=== PATIENT | male | born 1965 | race Caucasian/White ===

== ENCOUNTER 2020-11-08 10:44 | Day surgery (SDC) | payer BC, SELFPAY ==
[2020-11-04 14:28] VITALS: BMI 33.6
--- NOTE | 2020-11-07 09:38 | P.CONAN_ITS ---
Documented by User: Lorena Burrows 11/07/20 09:39 HPI - Anesthesia Eval Consult details Narrative: 55yo M for Upper Endoscopy and Colonoscopy [facility] Past Medical History Medical History (Updated 11/04/20 @ 14:18 by Jodie Mendoza) Anxiety Barretts esophagus Chronic rhinitis Elevated cholesterol GERD (gastroesophageal reflux disease) Pain and numbness of upper extremity Post-nasal drip Surgical History Surgical History (Updated 11/04/20 @ 14:18 by Jodie Mendoza) History of carpal tunnel release of both wrists History of esophagogastroduodenoscopy (EGD) Hx of colonoscopy Social History Social History (Updated 11/08/20 @ 12:11 by Rosaline Nagy) Alcohol intake: current Alcohol intake frequency: holidays/special occasions only Smoking Status: Current every day smoker Packs Per Day: 1 Cigarettes Per Day: 20 Years Smoked: 35 Smoked in Last 30 Days: Yes Use of substances other than those prescribed or required for medical reasons: Yes Substance Use Type: Marijuana Substance Use Frequency: Occasionally Last Used Substance: Days (ago) Advance Directives: No Advance Directives Information Provided: No Advance Directives on File: No Meds Allergies Allergy/AdvReac Type Severity Reaction Status Date / Time erythromycin base Allergy Intermediate RASH Unverified 06/13/20 15:51 [ERYTHROMYCIN BASE] Home Medications Medication Instructions Recorded Confirmed Last Taken Type acetaminophen 1,500 mg PO DAILY PRN 11/04/20 11/04/20 Unknown History amitriptyline 25 mg PO BEDTIME 11/04/20 11/04/20 Unknown History gabapentin 900 mg PO DAILY 11/04/20 11/08/20 11/08/20 06:30 History 900 mg omeprazole 1 cap PO BID 11/04/20 11/08/20 11/08/20 06:30 History Exam Exam Date and Time: November 07, 2020 0938 Height,Weight and Vital Signs: Height 5 ft 7 in Weight 97.522 kg Assessment and Plan Assessment Anesthesia Assessment: Chart Reviewed Documented by User: Rosaline Nagy 11/08/20 12:13 [facility] Past Medical History Medical History (Updated 11/04/20 @ 14:18 by Jodie Mendoza) Anxiety Barretts esophagus Chronic rhinitis Elevated cholesterol GERD (gastroesophageal reflux disease) Pain and numbness of upper extremity Post-nasal drip Family History Family history of problems with anesthesia: No Surgical History Surgical History (Updated 11/04/20 @ 14:18 by Jodie Mendoza) History of carpal tunnel release of both wrists History of esophagogastroduodenoscopy (EGD) Hx of colonoscopy History of Problems with Anesthesia: No Social History Social History (Updated 11/08/20 @ 12:11 by Rosaline Nagy) Alcohol intake: current Alcohol intake frequency: holidays/special occasions only Smoking Status: Current every day smoker Packs Per Day: 1 Cigarettes Per Day: 20 Years Smoked: 35 Smoked in Last 30 Days: Yes Use of substances other than those prescribed or required for medical reasons: Yes Substance Use Type: Marijuana Substance Use Frequency: Occasionally Last Used Substance: Days (ago) Advance Directives: No Advance Directives Information Provided: No Advance Directives on File: No Meds Allergies Allergy/AdvReac Type Severity Reaction Status Date / Time erythromycin base Allergy Intermediate RASH Unverified 06/13/20 15:51 [ERYTHROMYCIN BASE] Home Medications Medication Instructions Recorded Confirmed Last Taken Type acetaminophen 1,500 mg PO DAILY PRN 11/04/20 11/04/20 Unknown History amitriptyline 25 mg PO BEDTIME 11/04/20 11/04/20 Unknown History gabapentin 900 mg PO DAILY 11/04/20 11/08/20 11/08/20 06:30 History 900 mg omeprazole 1 cap PO BID 11/04/20 11/08/20 11/08/20 06:30 History Exam Height,Weight and Vital Signs: Vital Signs Temp Pulse Resp BP 11/08/20 11:28 97.4 F 67 20 138/64 Airway Mallampati Class: II TM Dist: >3cm Neck ROM: Full Denture: Upper and Lower Heart: RRR Lungs: CTAB Assessment and Plan Assessment Anesthesia Assessment: Anesthesia Plan Discussed and Chart Reviewed Final Anesthetic Review NPO: Yes ASA Class: II Final Preanesthetic Review: No Changes in Pt Med Stat, Meds/Allgs Chart Reviewed, Consent Obtained/Reviewed and Anes Risks/Benef Reviewed Patient Risk: Low Procedure Risk: Low Assessment/Block/Sedation in SS: Assess/Block/Sedation-SS Anesthetic Plan Disposition: Standard PACU
[2020-11-08 11:28] VITALS: BP 138/64; PULSE 67; RESP 20; TEMP 36.3
[2020-11-08 12:30] VITALS: BP 118/74; PULSE 70; RESP 20; TEMP 36.1; O2SAT 95
--- NOTE | 2020-11-08 12:30 | MHC.SHP ---
Pre-Procedural Eval Section A The patient is an INPATIENT: No Changes since office visit: No Cold of Flu in the past 2 weeks, No New Medical Problems, No Changes in Medication and No Patient answered all questions The History & Physical has been completed within 30 days and I have reviewed it.: Yes Section B Chief Complaint: reflux,screening,bleeding Allergies: Allergies Allergy/AdvReac Type Severity Reaction Status Date / Time erythromycin base Allergy Intermediate RASH Unverified 06/13/20 15:51 [ERYTHROMYCIN BASE] Plan I have reviewed the history and physical and performed a pertinent physical examination on my patient. No changes have occurred unless specified.
--- NOTE | 2020-11-08 12:31 | PM.OP ---
Brief Operative Note Date of Service: 11/08/20 Pre-op diagnosis: barretts, rectal bleeding Post-op diagnosis: same (colon polyp, condyloma) Procedure: egd colonoscopy Surgeon: Bret Llamas Anesthesia: MAC Estimated blood loss (mL): 5 Pathology: other (bxs esophagus, polyp 70, sigmoid bxs)
[2020-11-08 12:45] VITALS: BP 122/78; PULSE 66; RESP 18; TEMP 36.1; O2SAT 95
--- NOTE | 2020-11-08 13:06 | OP_ITS ---
SURGEON: Bret Llamas MD INDICATIONS: Mills's esophagus, reflux, and rectal bleeding. PREOPERATIVE DIAGNOSIS: POSTOPERATIVE DIAGNOSIS: PROCEDURE PERFORMED: Upper endoscopy with biopsy, colonoscopy to the terminal ileum with biopsy. ESTIMATED BLOOD LOSS: COMPLICATIONS: ANESTHESIA: ASSISTANTS: SPECIMENS: MEDICATIONS: Monitored anesthesia care. DESCRIPTION OF PROCEDURE: History and physical performed. The risks and benefits of the procedure were explained to the patient. Informed consent was obtained. The patient was placed in the left lateral decubitus position. The Olympus video gastroscope was introduced into the esophagus, stomach, and duodenum. Examination was performed. The scope was removed. He was repositioned for colonoscopy. Digital rectal exam was performed and was found to be normal. The Olympus pediatric video colonoscope was introduced into the rectum and advanced to the cecum without difficulty. The cecum was identified by transillumination, palpation, and identification of ileocecal valve. Examination was performed. The scope was removed. He tolerated the procedure well and returned to recovery area in stable condition. FINDINGS: Upper endoscopy: The esophagus showed 1 cm area of Mills's esophagus, similar to prior exams. There was no esophagitis. There were no raised lesions or ulcerated areas. Biopsies were obtained from the esophagus at the 40 cm breanna. Stomach: Stomach showed no evidence of masses, ulcers, or polyps. Duodenum: The bulb and second portion were normal. COLONOSCOPY: The terminal ileum was examined and appeared normal. The visualized colonic mucosa was within normal limits. In the cecum at about 70 cm was a less than 5 mm sessile polyp which we removed with biopsy forceps. No other polyps were identified. Random sigmoid biopsies were obtained. Retroflexed examination showed internal hemorrhoids. At the level of the anal sphincter was an approximately 5 to 7 mm whitish lesion which appeared consistent with an anal condyloma. No biopsies were obtained. IMPRESSION: 1. Mills's esophagus. 2. Colon polyp. 3. Condyloma. 4. Internal hemorrhoids. RECOMMENDATIONS: 1. Follow up the biopsy results. 2. Surgical referral for treatment of anal condyloma. 3. Topical hydrocortisone cream or suppositories to the rectum for symptomatic hemorrhoidal bleeding. MD BRITTANY Livingston/ROSIE / [id number] [facility]ENTERAub[facility]
== END 2020-11-08 13:32 | disposition home or self-care (01) ==
PROVIDERS: Visit Provider Internal Medicine Gastroenterology
PROC: (CPT 45380; principal; 2020-11-08 12:00)
DX: K62.5 Hemorrhage of anus and rectum (principal); K64.8 Other hemorrhoids; D12.6 Benign neoplasm of colon, unspecified; A63.0 Anogenital (venereal) warts; K21.9 Gastro-esophageal reflux disease without esophagitis; K22.70 Barrett's esophagus without dysplasia; Z86.010 Personal history of colon polyps
CPT/HCPCS: 45380; 43239; 88305

== ENCOUNTER → 2020-12-02 14:06 | Outpatient (BNVA) | payer BC, SELFPAY | PROVIDERS: Visit Provider Surgery | DX: K64.9 Unspecified hemorrhoids (principal); A63.0 Anogenital (venereal) warts | CPT/HCPCS: 46600 ==

== ENCOUNTER 2021-05-06 13:20 | Outpatient (REF) | payer BC, SELFPAY ==
[2021-05-06 16:38] LABS: Anion Gap 14 (12-20); Blood Urea Nitrogen 8 mg/dL (9-16); Calcium 9.8 mg/dL (8.4-10.2); Carbon Dioxide 26 mmol/L (22-29); Chloride 105 mmol/L (96-108); Estimated Glomerular Filt Rate > 60; Glucose Random 86 mg/dL (60-115); Potassium 4.4 mmol/L (3.3-5.1); Sodium 141 mmol/L (135-145)
== END 2021-05-06 13:21 | disposition home or self-care (01) ==
LOC: HO.HMGCLDS 13:20
PROVIDERS: PCP Internal Medicine; Visit Provider Internal Medicine
DX: I10 Essential (primary) hypertension (principal)
CPT/HCPCS: 36415; 80048

== ENCOUNTER 2021-09-24 13:00 | Outpatient (RCR) | payer BC, SELFPAY ==
--- NOTE | 2021-09-10 08:32 | MHC.PT.EP ---
[facility] [place] Office [place] Office [place] Office [address] Julio C Zendejas [address] [phone] F: [phone] F: [phone] F: [phone] F: [phone] Physical Therapy Plan of Care Date of Evaluation: Date of Surgery: none Diagnosis: low back pain Assessment: Patient is a 56 year old R handed male who presents with s/s consistent with low back pain. He does not work but does enjoy staying active and going for walks. He has been limited in this for > 1 year now. Patient past medical history includes HTN and GERD. Current impairments include pain, ROM, strength, independence, activity tolerance and functional mobility. Functional limitations include decreased ability to walk, stand, transfer, negotiate stairs, bend, lift, carry, and perform weight bearing activities.. Patient is motivated with good rehab potential. Skilled PT will address impairments and functional limitations in order to achieve goals. Frequency and Duration: The patient will be seen 2x/week for 5 weeks Short Term Goals: I with HEP - 2 week Normal MF mobility in lumbar spine - 3 weeks 90/90 lacking < 20 - 3 weeks Supervisor Of Research Goals: Able to walk and standing > 40 - 5 weeks Oswestry < 12% - 5 weeks Treatment Plan: Modalities to reduce pain, spasms and effusion. Manual therapy to restore motion and function. Therapeutic exercise to improve strength and flexibility. Neuromuscular re-education for posture and balance. Therapeutic activities to return to functional activities of daily living. Electronically signed by: Jordi Grewal PT Please sign and return to therapist. Thank you for your referral.
--- NOTE | 2022-02-02 11:52 | MHC.PT.DC ---
[facility] [place] Office [place] Office [place] Office [address] Julio C Zendejas [address] [facility] [phone] F: [phone] F: [phone] F: [phone] F: [phone] Physical Therapy Discharge Report Diagnosis: low back pain Date of Surgery: none Date of Evaluation: 09/09/21 Date of Discharge: 09/24/21 Treatments to Date: 3 Cancellations to Date: 0 No Shows to Date: 0 Discharge Status: Patient Elected to Stop Discharge Summary: D/c to [facility]. Electronically signed by: Jordi Grewal PT Please sign and return to therapist. Thank you for your referral.
== END 2022-02-02 11:52 | disposition home or self-care (01) ==
LOC: HO.PTCHIC 13:00
PROVIDERS: PCP Internal Medicine; Visit Provider Internal Medicine
DX: M54.50 Low back pain, unspecified (principal); I10 Essential (primary) hypertension
CPT/HCPCS: 97110; 97140; 97162

== ENCOUNTER 2021-09-24 14:11 | Outpatient (REF) | payer BC, SELFPAY ==
--- NOTE | ~2021-09-24 | XR_ITS ---
EXAMINATION: XR LUMBOSACRAL SPINE CLINICAL INFORMATION: M54.50 - Low back pain, unspecified COMPARISON: None TECHNIQUE: Three views of the lumbosacral spine. FINDINGS: There is normal lumbar segmentation with 5 nonrib-bearing vertebrae of normal height and normal lumbar lordosis. No lumbar vertebral compression, spondylolisthesis, destructive process, or focal lumbar disc narrowing. There is variable mild multilevel vertebral spurring lower thoracic and lumbar spine. There is mild facet degeneration L4-S1. AP view suggests sclerosis and possible ankylosis upper to mid left SI joint and probable bridging osteophyte mid right SI joint. XR/XR lumbar spine 2-3V IMPRESSION: 1. Multilevel vertebral spurring. No vertebral compression, spinal, or lumbar disc narrowing. 2. Mild facet degeneration L4-S1. 3. Ill-defined SI joints with possible sclerosis and ankylosis on left and bridging osteophyte on right.
== END 2021-09-24 14:12 | disposition home or self-care (01) ==
LOC: HO.HMGCX 14:11
PROVIDERS: PCP Internal Medicine; Visit Provider Internal Medicine
DX: M54.50 Low back pain, unspecified (principal); I10 Essential (primary) hypertension
CPT/HCPCS: 72100